=== PATIENT | male | born 1985 | race Caucasian/White ===

== ENCOUNTER 2022-05-24 10:40 | Emergency (ER) | payer OTHER, SELFPAY ==
--- NOTE | ~2022-05-24 | XR_ITS ---
XR hand RT min 3V 05/24/2022 11:10 Indication: Right hand pain and swelling Procedure: 3 views right hand Comparison: No prior studies for comparison. Findings: There is a healed right scaphoid fracture. There are healed fractures of the base of the fo urth and fifth metacarpals. No significant soft tissue abnormality. No foreign bodies. No acute fract ure. Impression: 1: No acute fracture. 2: Healed fractures of the scaphoid, fourth and fifth metacarpals. Reviewed, dictated and finalized at location A. Impression: 1: No acute fracture. 2: Healed fractures of the scaphoid, fourth and fifth metacarpals.
[2022-05-24 10:45] VITALS: BP 133/89; PULSE 71; RESP 16; TEMP 36.7; O2SAT 100
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
[2022-05-24 11:03] LABS: Basophils Percent Auto 0.4 % (0.2-1.2); Eosinophils Absolute Auto 0.5 K/mm3 (0-0.3); Eosinophils Percent Auto 4.6 % (0-4.4); Hematocrit 36.9 % (42.0-52.0); Hemoglobin 12.7 g/dL (14.0-18.0); Immature Granulocyte Percent A 0.9 % (0-0.5); Lymphocytes Absolute Auto 1.28 K/mm3 (0.9-3.2); Lymphocytes Percent Auto 11.6 % (18.3-44.2); Mean Corpuscular HGB Conc 34.4 g/dl (32-36); Mean Corpuscular Hemoglobin 29.6 pg (26-34); Mean Platelet Volume 9.3 fl (7.4-10.4); Monocytes Absolute Auto 1.2 K/mm3 (0.1-0.6); Monocytes Percent Auto 10.4 % (2.6-8.5); Neutrophils Percent Auto 72.1 % (45.5-73.1); Platelet Count Result 330 k/mm3 (150-375); Red Blood Count 4.29 M/mm3 (4.6-6.20); Red Cell Distribution Width 12.4 % (11.5-14.5); White Blood Count 11.1 K/mm3 (4.5-10.0)
[2022-05-24 11:17] LABS: Alanine Aminotransferase 15 U/L (6-50); Albumin Level 4.1 g/dL (3.5-5.1); Alkaline Phosphatase 98 U/L (38-126); Anion Gap 6 mmol/L (8-16); Aspartate Amino Transferase 24 U/L (17-59); Bilirubin,Total 0.4 mg/dL (0.2-1.3); Blood Urea Nitrogen 15 mg/dL (9-20); CRP 0.8 mg/dL (<1.0); Calcium 8.7 mg/dL (8.4-10.2); Carbon Dioxide 30 mmol/L (22-30); Chloride 99 mmol/L (98-107); Estimated CRCL calculation 134 ml/min; Estimated Glomerular Filt Rate > 60; Glucose 108 mg/dL (65-110); Potassium 4.1 mmol/L (3.4-5.0); Sodium 135 mmol/L (137-145)
[2022-05-24] MEDS: methylPREDNISolone SOD SUCC 125 MG VIAL IV PUSH (12:13)
[2022-05-24 12:18] VITALS: BP 131/85; PULSE 78; RESP 18; O2SAT 100
== END 2022-05-24 12:19 | disposition home or self-care (01) ==
PROVIDERS: Emergency Provider Nurse Practitioner Family; PCP Internal Medicine
DX: M25.541 Pain in joints of right hand (principal); F32.9 Major depressive disorder, single episode, unspecified; I10 Essential (primary) hypertension
CPT/HCPCS: 36415; 73130; 80053; 85025; 86140; 96374; 99284; J2930

== ENCOUNTER 2022-08-31 10:45 | Outpatient (CLI) | payer OTHER, SELFPAY ==
--- NOTE | ~2022-08-31 | MR_ITS ---
EXAMINATION: MR hand LT wo/w con DATE: 08/31/2022 10:27 INDICATION: Left hand pain. Seronegative rheumatoid arthritis. TECHNIQUE: Magnetic resonance imaging (MRI) of the left hand was performed without and with 14 mL Mul tiHance intravenous contrast. COMPARISON: None FINDINGS: Motion artifact is noted. There is failure of fat saturation in multiple areas including in the wrist. Bone alignment is normal. No fracture. There is mild edema-like marrow signal intensity i n diaphysis of second metacarpal, likely stress reaction. There is edema-like marrow signal intensity in proximal capitate at its palmar aspect. There is mild osteoarthritis of triscaphe joint, first ca rpometacarpal joint, and second-fifth distal interphalangeal joints with tiny osteophytes. There is a rthritis of second metacarpophalangeal joint with edema-like marrow signal intensity in base of secon d proximal phalanx and head of second metacarpal. IMPRESSION: 1. Mild polyarticular osteoarthritis. 2. Mild nonspecific arthritis of second metacarpophalangeal joint. 3. Sensitivity for synovitis is severely decreased by the failure of fat saturation and motion artifa ct. Reviewed, dictated and finalized at location A. MER IMPRESSION: 1. Mild polyarticular osteoarthritis. 2. Mild nonspecific arthritis of second metacarpophalangeal joint. 3. Sensitivity for synovitis is severely decreased by the failure of fat satura tion and motion artifact.
--- NOTE | ~2022-08-31 | MR_ITS ---
EXAMINATION: MR hand RT wo/w con DATE: 08/31/2022 10:27 INDICATION: Right hand pain. Seronegative rheumatoid arthritis. TECHNIQUE: Magnetic resonance imaging (MRI) of the right hand was performed without and with 14 mL Mu ltiHance intravenous contrast. COMPARISON: Right hand radiographs 05/24/2022 FINDINGS: There is failure of fat saturation in the wrist. Motion artifact is noted. Bone alignment i s normal. No fracture. There are old healed fractures of the bases of fourth and fifth metacarpals. T here is mild osteoarthritis of radioscaphoid joint, triscaphe joint, first carpometacarpal joint and third carpometacarpal joint. There is moderate osteoarthritis of second metacarpophalangeal joint and fourth carpometacarpal joint and severe osteoarthritis of fifth carpometacarpal joint. There is mild osteoarthritis of first metacarpophalangeal joint. There is edema-like marrow signal intensity in th e heads of the second and third metacarpals with enhancing synovitis of the second and third metacarp ophalangeal joints. IMPRESSION: 1. Polyarticular osteoarthritis including posttraumatic osteoarthritis of the fourth and fifth carpom etacarpal joints. 2. Mild nonspecific arthritis of the second and third metacarpophalangeal joints. 3. Sensitivity for synovitis is severely decreased by the failure of fat saturation in the wrist and motion artifact. Reviewed, dictated and finalized at location A. E ANALYST IMPRESSION: 1. Polyarticular osteoarthritis including posttraumatic osteoarthritis of the f ourth and fifth carpometacarpal joints. 2. Mild nonspecific arthritis of the second and third metacarpophalangeal joint s. 3. Sensitivity for synovitis is severely decreased by the failure of fat satura tion in the wrist and motion artifact.
--- NOTE | ~2022-08-31 | XR_ITS ---
XR sacroiliac joints min 3V DATE: 08/31/2022 10:41 INDICATION: Systemic lupus erythematosus TECHNIQUE: AP and bilateral oblique views of sacroiliac joints COMPARISON: None FINDINGS: Normal alignment at the sacroiliac joints. No fracture or dislocation, erosive change or an kylosis. The pubic symphysis is normally aligned. IMPRESSION: Negative sacroiliac joints Reviewed, dictated and finalized at Location A. Reviewed, dictated and finalized at location B. MAN IMPRESSION: Negative sacroiliac joints
--- NOTE | ~2022-08-31 | XR_ITS ---
XR knee RT min 4V DATE: 08/31/2022 10:41 INDICATION: Systemic lupus erythematosus TECHNIQUE: [place] and standing AP, PA and lateral views COMPARISON: 07/04/2011 right knee FINDINGS: There is suggestion of a moderately large suprapatellar knee joint effusion. There is mild periarticular spurring at all 3 compartments, most prominent at the patellofemoral comp artment. There is prominent loss of joint space height at the medial compartment and mild lateral tra nslation at the femoral tibial joint. No fracture or dislocation, periosteal reaction or bone destruction, radiopaque intra-articular loose body or chondrocalcinosis is noted. IMPRESSION: Mild lateral subluxation of the femoral tibial joint Tricompartment osteophytosis, most prominent at the medial compartment Moderately large suprapatellar knee joint effusion Reviewed, dictated and finalized at location B. GY SPECIALIST
--- NOTE | ~2022-08-31 | XR_ITS ---
XR knee LT min 4V DATE: 08/31/2022 10:41 INDICATION: Systemic lupus erythematosus TECHNIQUE: [place] and standing AP, PA and lateral views COMPARISON: None FINDINGS: Suprapatellar knee joint effusion is suggested. There is mild lateral subluxation of the femoral tibial joint. There is severe joint space narrowing at the medial compartment with. There is spurring at all 3 comp artments, particularly the patellofemoral compartment. No fracture or dislocation, radiopaque intra-articular loose body or chondrocalcinosis. No periosteal reaction or bone destruction. IMPRESSION: Tricompartment osteophytes, most prominent at the medial compartment Mild lateral subluxation of the femoral tibial joint Possible suprapatellar knee joint effusion Reviewed, dictated and finalized at location B. ULSION GENERATOR REPAIRER IMPRESSION: Tricompartment osteophytes, most prominent at the medial compartmen t Mild lateral subluxation of the femoral tibial joint Possible suprapatellar knee joint effusion
[2022-08-31 11:33] LABS: Uric Acid 3.6 mg/dL (3.5-8.5)
[2022-08-31 11:40] LABS: Complement C3 85 mg/dL (88-165)
[2022-09-03 13:32] LABS: Anti Cyclic Citrullinated Pept <16 Units (<20)
[2022-09-06 13:59] LABS: HLA B27 Negative (Negative)
== END 2022-08-31 10:46 | disposition home or self-care (01) ==
PROVIDERS: PCP Internal Medicine; Visit Provider Internal Medicine
DX: M32.9 Systemic lupus erythematosus, unspecified (principal); M54.9 Dorsalgia, unspecified; M19.041 Primary osteoarthritis, right hand; M19.042 Primary osteoarthritis, left hand
CPT/HCPCS: 36415; 72202; 73220; 73564; 84550; 86160; 86200; 86812; A9577

== ENCOUNTER 2022-09-19 10:11 | Outpatient (CLI) | payer OTHER, SELFPAY ==
--- NOTE | 2022-09-19 11:00 | NEURO_ITS ---
Impression: # History of numbness and weakness involving 4th&5th digits of right hand. # Right ulnar neuropathy with absent motor and sensory responses. # Normal needle/EMG exam. # Clinical correlation recommended. Motor Nerve Conduction Upper Extremities Median Nerve Conduction Velocity (m/sec) Terminal Latency (msec) Response Voltage(mV) Elbow-Wrist Wrist Elbow Wrist Right 60 2.6 6 6 Left Ulnar Nerve Conduction Velocity (m/sec) Terminal Latency (msec) Response Voltage(mV) Above Elbow Below Elbow Wrist Above Elbow Below Elbow Wrist Right NR NR NR NR NR NR Left F-Wave Latency Median (ms) Ulnar (ms) Right 27.8 30.0 Left Sensory Nerve Conduction Upper Extremities Median Nerve Stimulation Terminal Latency (msec) Wrist/Digit Response Voltage (uV) Wrist Right 2.8/2.8 41/53 Left Ulnar Nerve Stimulation Terminal Latency (msec) Wrist/Digit Response Voltage (uV) Wrist Right NR NR Left Radial Nerve Terminal Latency (msec) Response Voltage(mV) Right 1.9 45 Left Left Right Muscles Examined Fibrillation Fasciculation Scarcity Voltage Duration Left Right Left Right Left Right Left Right Left Right Deltoid Biceps X Brachioradialis Triceps X Pronator Teres X Ext Indicis X Ext Digitorum X Abd Poll Brev X 1st Dorsal Interosseus Paraspinals MTDD
== END 2022-09-19 10:12 | disposition home or self-care (01) ==
PROVIDERS: PCP Internal Medicine; Visit Provider Nurse Practitioner
DX: M25.521 Pain in right elbow (principal); R20.0 Anesthesia of skin
CPT/HCPCS: 95886; 95909

== ENCOUNTER → 2022-10-13 07:52 | Outpatient (CLI) | payer OTHER, SELFPAY ==
--- NOTE | ~2022-10-13 | MR_ITS ---
MRI of the right elbow CLINICAL HISTORY: Pain TECHNIQUE: Axial T1-weighted, T1 fat-sat, and T2 fat-sat images, coronal T1-weighted and T2 fat-sat i mages, and sagittal T1-weighted, T2 fat-sat, and proton-density images were performed. Following intr avenous administration of 14 cc MultiHance gadolinium, T1-weighted fat-sat imaging was performed in t he axial, coronal, and sagittal planes. FINDINGS: Ulnar collateral ligament is intact. Radial collateral ligament and the lateral ulnar colla teral ligament are intact. Common flexor and common extensor tendon origins are unremarkable. No dist inct evidence for medial or lateral epicondylitis. There is extensive high-grade chondromalacia of the radial head and distal ulna. There is moderate os teophyte formation about the elbow, including the distal humerus and radial head, and from the corono id process and olecranon portion of the ulna. No significant joint effusion. There is a ganglion cyst extending from the medial aspect of the elbow joint along the proximal aspect of the ulna medially, with the largest part of the cyst measuring 2.5 x 1.2 x 1.4 cm in size. Brachialis, biceps, and triceps tendons are intact. No muscle atrophy or edema. There is extensive butler bcutaneous soft tissue edema at the anteromedial aspect of the elbow, with mild irregular postcontras t enhancement but no focal fluid collection. No other abnormal postcontrast enhancement seen. IMPRESSION: Enhancing subcutaneous soft tissue edema at the anteromedial aspect of the elbow. Correlate for cellu litis. No abscess. 2.5 x 1.2 x 1.4 cm ganglion cyst along the medial aspect of the proximal ulna, connected by a thin ne ck of fluid to the medial aspect of the elbow joint. Moderate elbow joint osteoarthritis, as detailed above. Reviewed, dictated and finalized at location . PULLER IMPRESSION: Enhancing subcutaneous soft tissue edema at the anteromedial aspect of the elbo w. Correlate for cellulitis. No abscess. 2.5 x 1.2 x 1.4 cm ganglion cyst along the medial aspect of the proximal ulna, connected by a thin neck of fluid to the medial aspect of the elbow joint. Moderate elbow joint osteoarthritis, as detailed above.
== END ==
PROVIDERS: PCP Internal Medicine; Visit Provider Orthopaedic Surgery
DX: M19.021 Primary osteoarthritis, right elbow (principal); M67.431 Ganglion, right wrist
CPT/HCPCS: 73223; A9577

== ENCOUNTER 2022-11-28 16:20 | Emergency (ER) | payer OTHER, SELFPAY ==
[2022-11-28 16:28] VITALS: BP 130/107; PULSE 106; RESP 18; TEMP 36.5; O2SAT 100
--- NOTE | 2022-11-28 16:44 | ED.WOUNDLAC ---
HPI - Wound/Laceration General Chief Complaint: Wound/Laceration Stated Complaint: Right Hand Injury/Puncture Wound Source: patient and RN notes reviewed History of Present Illness HPI narrative: 36-year-old male presents to urgent care with complaints of a puncture wound to his right palm of the hand. Patient states will days ago he was moving a shelf when croup punctured his right palm. Patient reports history of a nerve issues in this hand and denies any new numbness or tingling. Patient states he has a history of lupus and was concerned about infection. Patient also adds he has had an ulcer to his left forearm for some time and was hoping to get an antibiotic. Patient denies any recent drug use but admits to history of. Patient states the ulcer on his left forearm is from picking at a pimple. Patient states he is up-to-date on his tetanus vaccination. Related Data Allergies Allergy/AdvReac Type Severity Reaction Status Date / Time cefaclor Allergy Unknown Rash Verified 09/28/22 09:29 Review of Systems Review of Systems: CONSTITUTIONAL: Denies fever, chills, or sweats. EYES: Denies visual changes, redness, or discharge. ENT: Denies otalgia and sore throat CARDIOVASCULAR: Denies chest pain, palpitations, or edema. RESPIRATORY: Denies cough or dyspnea. GASTROINTESTINAL: Denies abdominal pain, nausea, vomiting, or diarrhea. GENITOURINARY: Denies dysuria or hematuria. SKIN: Puncture wound right hand and ?ulcer? to left forearm MUSCULOSKELETAL: Denies back pain, joint pain, or myalgia. NEUROLOGIC: Denies headache, numbness, or weakness. [facility] Past Medical History Medical History (Updated 11/28/22 @ 16:46 by Hodan Rea APRN) Back pain Bilateral hand pain Depression Erectile dysfunction Essential hypertension Lupus (systemic lupus erythematosus) Ulnar neuropathy of right upper extremity Weakness of both hands Surgical History Surgical History History of ear surgery History of foot surgery History of hand surgery Family History Family History Father Hypertension Patient's father is in good health Mother Depression Patient's mother is in good health Social History Social History Smoking packs per day: 1 Smoking cigarettes per day: 20.0 Smoking status: Current every day smoker Alcohol intake: never Substance use: current Substance use type: marijuana Living arrangements: with family Occupation/Education: occupation 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 There is no relevant family history pertinent to the patient complaint. Exam Narrative: GENERAL: This is a well-developed patient, in no apparent distress. Appears jittery and anxious. HEAD: normocephalic, atraumatic. EYES: PERRL. Sclera clear/white. Vision is grossly intact. EARS: External ears normal, auditory canals clear and without drainage, TMs normal without perforation. Hearing grossly intact. NOSE: External nose normal with no obvious nasal discharge, nares without redness, no rhinorrhea. THROAT: Mucous membranes moist, posterior pharynx clear. NECK: Neck supple, non-tender without lymphadenopathy, masses or thyromegaly. CARDIOVASCULAR: Regular rate and rhythm without murmurs, gallops, or rubs. RESPIRATORY: Clear to auscultation. Breath sounds equal bilaterally. No wheezes, rales, or rhonchi. GASTROINTESTINAL: Abdomen soft, non-tender, nondistended. Bowel sounds are active. No hepato-splenomegaly, or palpable masses. No guarding. SKIN: healing puncture wound to right palm of hand with minimal surrounding erythrema, no drainage or significant swelling. Nickel size ulceration to left FA with 2 cm of erythremia surrounding
== END 2022-11-28 16:52 | disposition home or self-care (01) ==
PROVIDERS: Emergency Provider Nurse Practitioner Family; PCP Internal Medicine
DX: S61.431A Puncture wound without foreign body of right hand, initial encounter (principal); L03.114 Cellulitis of left upper limb; W26.8XXA Contact with other sharp object(s), not elsewhere classified, initial encounter; I10 Essential (primary) hypertension; M32.9 Systemic lupus erythematosus, unspecified
CPT/HCPCS: 99213; G0463

== ENCOUNTER 2023-02-23 13:12 | Outpatient (CLI) | payer OTHER, SELFPAY ==
[2023-02-23 13:53] LABS: Basophils Percent Auto 0.2 % (0.2-1.2); Eosinophils Percent Auto 0.3 % (0-4.4); Hematocrit 43.2 % (42.0-52.0); Hemoglobin 15.7 g/dL (14.0-18.0); Immature Granulocyte Absolute 0.06 K/mm3 (0.00-0.031); Immature Granulocyte Percent A 0.5 % (0-0.5); Lymphocytes Percent Auto 7.8 % (18.3-44.2); Mean Corpuscular HGB Conc 36.3 g/dl (32-36); Mean Corpuscular Hemoglobin 28.9 pg (26-34); Mean Corpuscular Volume 79.4 fl (80-100); Monocytes Absolute Auto 0.6 K/mm3 (0.1-0.6); Monocytes Percent Auto 5.1 % (2.6-8.5); Neutrophils Absolute Auto 9.9 K/mm3 (1.3-6.7); Neutrophils Percent Auto 86.1 % (45.5-73.1); Platelet Count Result 335 k/mm3 (150-375); Red Blood Count 5.44 M/mm3 (4.6-6.20); Red Cell Distribution Width 12.8 % (11.5-14.5); White Blood Count 11.5 K/mm3 (4.5-10.0)
[2023-02-23 14:14] LABS: Alanine Aminotransferase 22 U/L (6-50); Alkaline Phosphatase 107 U/L (38-126); Anion Gap 11 mmol/L (8-16); Aspartate Amino Transferase 24 U/L (17-59); Bilirubin,Total 1.3 mg/dL (0.2-1.3); Blood Urea Nitrogen 13 mg/dL (9-20); CRP < 0.5 mg/dL (<1.0); Calcium 9.3 mg/dL (8.4-10.2); Carbon Dioxide 27 mmol/L (22-30); Chloride 102 mmol/L (98-107); Creatine Kinase 84 U/L (55-170); Estimated Glomerular Filt Rate > 60; Glucose 109 mg/dL (65-110); Potassium 3.5 mmol/L (3.4-5.0); Sodium 140 mmol/L (137-145); Uric Acid 3.1 mg/dL (3.5-8.5)
[2023-02-23 14:18] LABS: Complement C3 99 mg/dL (88-165)
[2023-02-23 14:29] LABS: Vitamin D 25 Hydroxy 14.7 ng/mL
[2023-02-23 14:41] LABS: Erythrocyte Sedimentation Rate 14 mm/hr (0-20)
[2023-02-28 17:58] LABS: SM Antibody <1.0; SM/RNP Antibody <1.0
[2023-03-01 13:21] LABS: Aldolase 3.6 U/L (<=8.1); Angiotensin Converting Enzyme 31.3 U/L (9-67)
== END 2023-02-23 13:13 | disposition home or self-care (01) ==
LOC: ANHLAB 13:13
PROVIDERS: PCP Internal Medicine; Visit Provider Internal Medicine
DX: G56.21 Lesion of ulnar nerve, right upper limb (principal); M32.9 Systemic lupus erythematosus, unspecified; M19.90 Unspecified osteoarthritis, unspecified site
CPT/HCPCS: 36415; 80053; 82085; 82164; 82306; 82550; 84550; 85025; 85652; 86140; 86160; 86225; 86235

== ENCOUNTER 2023-06-23 14:31 | Emergency (ER) | payer OTHER, SELFPAY ==
[2023-06-23 14:36] VITALS: BP 131/83; PULSE 81; RESP 20; TEMP 37.4; O2SAT 100
--- NOTE | 2023-06-23 14:46 | ED.EXTPRO ---
HPI - Extremity Problem General Chief complaint: Extremity Problem,Nontraumatic Stated complaint: left foot swollen / has lupas and RA Source: patient and RN notes reviewed History of Present Illness HPI Narrative: 37 yo M presents to urgent care with complaints of left foot pain and swelling. Pt states his pain started around 4 days ago but his pain got worse 2 nights ago. Pt states he has been unable to sleep due to the pain. Pt states he had taken Tylenol at home and a couple ibuprofen. Pt reports hx of Lupus and RA. Denies any injury. States he was supposed to have surgery on his ulnar nerve on the but it was canceled b/c he had Covid and it is being rescheduled. Pt states his surgeon does not want him on a steroid for 4-5 weeks prior to the surgery or taking any NSAID 2 weeks prior. Related Data Home Medications Medication Instructions Recorded Confirmed amlodipine 10 mg tablet 10 mg PO DAILY 01/04/23 Allergies Allergy/AdvReac Type Severity Reaction Status Date / Time cefaclor Allergy Unknown Rash Verified 02/26/23 14:17 Review of Systems Review of Systems: CONSTITUTIONAL: Denies fever, chills, or sweats. EYES: Denies visual changes, redness, or discharge. ENT: Denies otalgia and sore throat CARDIOVASCULAR: Denies chest pain, palpitations, or edema. RESPIRATORY: Denies cough or dyspnea. GASTROINTESTINAL: Denies abdominal pain, nausea, vomiting, or diarrhea. GENITOURINARY: Denies dysuria or hematuria. SKIN: Denies rash or itching. MUSCULOSKELETAL: Left foot pain swelling NEUROLOGIC: Denies headache, numbness, or weakness. Pertinent positives per HPI. [facility] Past Medical History Medical History Back pain Bilateral hand pain Depression Erectile dysfunction Essential hypertension Lupus (systemic lupus erythematosus) Ulnar neuropathy of right upper extremity Weakness of both hands Surgical History Surgical History History of ear surgery History of foot surgery History of hand surgery Family History Family History Father Hypertension Patient's father is in good health Mother Depression Patient's mother is in good health Social History Social History Smoking packs per day: 1 Smoking cigarettes per day: 20.0 Smoking status: Current every day smoker Alcohol intake: never Substance use: current Substance use type: marijuana Living arrangements: with family Occupation/Education: occupation 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 There is no relevant family history pertinent to the patient complaint. Exam Narrative: GENERAL: This is a well-nourished, well-developed patient, in no apparent distress. HEAD: normocephalic, atraumatic. EYES: Sclera clear/white. Vision is grossly intact. EARS: External ears normal, auditory canals clear and without drainage. Hearing grossly intact. NOSE: External nose normal with no obvious nasal discharge, nares without redness, no rhinorrhea. THROAT: Mucous membranes moist, posterior pharynx clear. NECK: Neck supple, non-tender without lymphadenopathy, masses or thyromegaly. CARDIOVASCULAR: Regular rate and rhythm without murmurs, gallops, or rubs. RESPIRATORY: Clear to auscultation. Breath sounds equal bilaterally. No wheezes, rales, or rhonchi. GASTROINTESTINAL: Abdomen soft, non-tender, nondistended. Bowel sounds are active. No hepato-splenomegaly, or palpable masses. No guarding. SKIN: warm, intact with no suspicious lesions or rash, good texture and turgor. NEURO: awake, alert, and oriented to person, place and time. There were no obvious focal neurologic abnormalities. EXT
[2023-06-23] MEDS: methylPREDNISolone SOD SUCC 125 MG VIAL IM (15:00)
== END 2023-06-23 15:20 | disposition home or self-care (01) ==
PROVIDERS: Emergency Provider Nurse Practitioner Family; PCP Family Medicine
DX: M19.072 Primary osteoarthritis, left ankle and foot (principal); I10 Essential (primary) hypertension; M32.9 Systemic lupus erythematosus, unspecified; M06.9 Rheumatoid arthritis, unspecified
CPT/HCPCS: 96372; 99213; G0463; J2930

== ENCOUNTER 2025-08-28 10:06 | Emergency (ER) | payer OTHER, SELFPAY ==
[2025-08-28 10:15] VITALS: BP 144/93; PULSE 95; RESP 18; TEMP 37.5; O2SAT 100
--- NOTE | 2025-08-28 10:56 | ED_ITS ---
HPI - Dental/Oral General Chief complaint: Dental/Oral Stated complaint: Toothache/Facial Swelling Time Seen by Provider: 08/28/25 10:45 Source: patient, RN notes reviewed and old records reviewed Mode of arrival: ambulatory Limitations: no limitations History of Present Illness HPI Narrative: 39 year old male who presents to [facility] with dental pain to the left upper molars #12 and #13 with swelling noted to his left side of face which started this morning. Patient reports that he has been taking Tylenol and Ibuprofen for his pain and did take a dose of Prednisone that he had for his discomfort without improvement. Patient reports that he does not have present dentist. Patient reports history of Lupus and Rheumatoid arthritis and also hypertension. Patient noted to have note cavities to teeth and redness and swelling along gums of affected teeth.Patient reports no difficulty with swallowing or any difficulty with his breathing. MD Complaint: tooth pain Location: Tooth # (# 12 and # 13) Onset (ago): hour(s) (this morning) Severity scale (1-10): 9 Treatment prior to arrival: oral analgesic and other (dose of prednisone) Related Data Home Medications ?Medication ?Instructions ?Recorded ?Confirmed ?Last Taken ?Type amlodipine 10 mg tablet 10 mg PO DAILY 01/04/23 10/0 01/04 Unknown History Allergies Allergy/AdvReac Type Severity Reaction Status Date / Time cefaclor Allergy Unknown Rash Verified 08/28/25 10:11 Review of Systems Review of Systems: CONSTITUTIONAL: Denies any known fever, chills, or sweats. ENT: Denies rhinorrhea, congestion, sore throat, or otalgia. Reports dental pain to #12 and #13 teeth with facial swelling to the left side of face no jaw or submandibular swelling CARDIOVASCULAR: Denies chest pain, palpitations, or edema. RESPIRATORY: Denies cough or dyspnea. SKIN: Denies rash or itching. MUSCULOSKELETAL: Denies myalgia. NEUROLOGIC: Denies headache All systems reviewed & are unremarkable except as noted in HPI and below [facility] Past Medical History Medical History Rheumatoid arthritis Ulnar neuropathy of right upper extremity Weakness of both hands Bilateral hand pain Back pain Lupus (systemic lupus erythematosus) Essential hypertension Erectile dysfunction Depression Surgical History Surgical History History of ear surgery History of foot surgery History of hand surgery Family History Family History Father Hypertension Patient's father is in good health Mother Depression Patient's mother is in good health Social History Social History Smoking packs per day: 1 Smoking cigarettes per day: 20.0 Smoking status: Current every day smoker Tobacco type: e-cigarettes/vaping Additional smoking assessment comments: former cigarette smoking now vapes Alcohol intake: never Substance use: current Substance use type: marijuana Living arrangements: with family Occupation/Education: occupation Additional occupation/education comments: [employer] Comments At time of signature, agree with nursing past medical, surgical, social and family history. There is no relevant family history pertinent to the presenting complaint Exam Narrative: GENERAL: Well-appearing, well-nourished, and in some acute distress. HEAD: Normocephalic, atraumatic. EYES: PERRLA and EOMI. ENT: Nares clear, no rhinorrhea or epistaxis. Mucous membranes moist. Missing teeth, broken teeth, caries noted to affected teeth #12 and #13 with redness swelling of gums along teeth and swelling to left side of face no trismus or signs of Lalo angina, is able to control own secretions without reported difficulty swallowing or breathing NECK: Supple.no lymphadenopathy no jaw or submandibular swelling CHEST: Clear to auscultation. No respiratory distress.no tachypnea SAO2 100% on room air HEART: Regular rate and rhythm. No murmur heard. Normal peripheral pulses. SKIN: Warm, dry, no rash. NEURO: No focal deficits. Alert and oriented x3. Course Course Emergency Course: Patient is aware of diagnosis, understands and agrees to treatment plan. Anticipatory guidance given. Patient agrees to follow-up as directed and is aware of reasons to seek care at the emergency department. Portions of this record may have been created with voice recognition software Level of Care: Express Care Visit Vital Signs Vital signs: Vital Signs Temperature 37.5 C 08/28/25 10:15 Pulse Rate 95 08/28/25 10:15 Respiratory Rate 18 08/28/25 10:15 Blood Pressure 144/93 H 08/28/25 10:15 Pulse Oximetry 100 08/28/25 10:15 Oxygen Delivery Room Air 08/28/25 10:15 Temperature 37.5 C 08/28/25 10:15 Pulse Rate 95 08/28/25 10:15 Respiratory Rate 18 08/28/25 10:15 Blood Pressure 144/93 H 08/28/25 10:15 Pulse Oximetry 100 08/28/25 10:15 Oxygen Delivery Room Air 08/28/25 10:15 Reviewed MDM - Dental/Oral MDM Narrative Medical decision making narrative: Patients pain and complaint coupled with physical findings are consistent with dentalgia. There are no focal signs of space occupying lesions that are compromising to the airway; no dysphagia, odynophagia, dysphonia, or dyspnea. No uvular deviation or soft palate edema. Patient is non-toxic appearing. The floor of the mouth is soft with no signs of Lalo's Angina; no induration below mandible, no neck pain.? Patient is without trismus or drooling and able to swallow secretions.? Patient is felt appropriate for discharge home with dental follow up. Differential Diagnosis Differential diagnosis: Likely dental caries, toothache, dental abscess and other (facial swelling) Medical Records Attestation: I reviewed the patient's medical records. Critical Care Time Critical Care Time Critical Care Time: No Discharge Plan Discharge Clinical Impression: Abscess, dental, Toothache Patient Disposition: Home Condition: Stable Instructions: Antibiotic Form, Dental Abscess (ED), Toothache (ED) Additional Instructions: Avoid temperature extremes May apply heat or ice to the face Gentle brushing and flossing Antibiotic as directed Tylenol for lesser pain Use ibuprofen regularly Follow-up with the dentist as soon as possible--see the list provided If your symptoms persist, change or worsen significantly before you can contact your personal physician then please, without delay, go to the emergency department for further evaluation. Follow-up with PCP in 7-10 days or sooner if needed Follow up with PCP soon in regards to your blood pressure which is elevated above threshold for referral. Blood pressure above 120/80 may indicate pre- hypertension.144/93 Patient Language: Armenian Prescriptions: New clindamycin HCl [Cleocin HCl] 300 mg capsule 300 mg PO Q8H Qty: 30 0RF Rx Instructions: take with food methylprednisolone [Medrol (Christopher)] 4 mg tablets,dose pack See Rx Instructions .ROUTE .COMPLEX Qty: 21 0RF Rx Instructions: orally per package directions ibuprofen 600 mg tablet 600 mg PO QID PRN (Reason: fever or pain) Qty: 30 0RF Rx Instructions: take with food No Action amlodipine 10 mg tablet 10 mg PO DAILY hydroxychloroquine [Plaquenil] 200 mg tablet 400 mg PO DAILY Qty: 60 0RF Follow-up/Referrals: PHYSICIAN,CONTRACT SPECIALIST [Primary Care Provider, Internal Medicine] Stand Alone Forms: Work/School Release IP Time of Disposition: 11:12 Quality Debra Coma Scale Eyes: Open Verbal: Oriented and Alert Motor: Follows Commands Debra Coma Total Score: 15
== END 2025-08-28 11:18 | disposition home or self-care (01) ==
PROVIDERS: Emergency Provider Registered Nurse
DX: K04.7 Periapical abscess without sinus (principal); F17.290 Nicotine dependence, other tobacco product, uncomplicated; F12.90 Cannabis use, unspecified, uncomplicated; M32.9 Systemic lupus erythematosus, unspecified; I10 Essential (primary) hypertension; M06.9 Rheumatoid arthritis, unspecified
CPT/HCPCS: 99213; G0463